=== PATIENT | male | born 1960 | race Two or more races ===

== ENCOUNTER 2019-02-16 08:40 | Emergency (ER) | payer OTHER ==
[~2019-02-16] VITALS: Ht 180.3 cm; Wt 120.2 kg
[2019-02-16] MEDS ORDERED: ATACAND HCT 321 EAC1 (08:51)
[2019-02-16] MEDS ORDERED: ATACAND32 MG (08:51)
[2019-02-16] MEDS ORDERED: NORVASC5 MG PO (08:51)
[2019-02-16] MEDS ORDERED: VOLTAREN PO (08:52)
== END 2019-02-16 10:24 | disposition home or self-care (01) ==
LOC: ER 08:40
DX: M76.891 Other specified enthesopathies of right lower limb, excluding foot (principal)